=== PATIENT | male | born 1980 | race Caucasian/White ===

== ENCOUNTER 2021-11-13 07:36 | Emergency (ER) | payer OTHER, SELFPAY ==
[2021-11-13] VITALS (7 sets, daily range): BP systolic 130–146; BP diastolic 78–106; PULSE 58–95; RESP 18–20; TEMP 35.9–36.9; O2SAT 94–95
--- NOTE | ~2021-11-13 | XR_ITS ---
EXAMINATION: XR chest 1V portable 11/13/2021 08:12 INDICATION: Covid positive. Dyspnea. PROCEDURE: AP portable chest COMPARISON: 08/04/2014 FINDINGS: The lungs are clear. The cardiomediastinal silhouette is within normal limits. There are no pleural effusions. There is no pneumothorax suspected. IMPRESSION: 1: NO ACUTE CARDIOPULMONARY DISEASE. Reviewed, dictated and finalized at location A. [facility]
--- NOTE | 2021-11-13 07:42 | ED.SOB ---
HPI - SOB/Dyspnea General Chief Complaint: Shortness of Breath/Dyspnea Stated Complaint: SOB, COVID + Time Seen by Provider: 11/13/21 07:42 Source: patient Mode of arrival: ambulatory Limitations: no limitations History of Present Illness HPI Narrative: The patient is a 41-year-old male with a history of hypertension, anxiety, presenting to the emergency department for evaluation of shortness of breath. Patient states that he tested positive for influenza A and Covid on November 06. Patient states his positive exposure is his daughter who has had similar symptoms. States that she was symptomatic on November 03. Patient reports fever, chills, cough, chest tightness over the past week with increasing shortness of breath that worsens with exertion. Denies any current chest pain. Patient reports he has extreme anxiety, states that he believes that his anxiety also plays a role in this. He denies palpitations. No hemoptysis. Patient denies pleuritic chest pain. He reports diarrhea, nausea, denies significant abdominal pain. Patient is vaccinated. Patient denies calf pain or leg swelling. Patient states he has been using an albuterol inhaler which was prescribed by his primary care physician without much improvement in his symptoms. Patient states he was diagnosed with influenza A, Covid positive at [facility]. Related Data Home Medications Medication Instructions Recorded Confirmed acetaminophen-codeine tablet 11/13/21 albuterol sulfate INHALATION 11/13/21 alprazolam 11/13/21 benzonatate mg PO 11/13/21 lisinopril-hydrochlorothiazide tablet 11/13/21 11/13/21 Allergies Allergy/AdvReac Type Severity Reaction Status Date / Time No Known Allergies Allergy Unknown Verified 12/04/15 11:33 Review of Systems Review of Systems: CONSTITUTIONAL: Reports fever and chills EYES: Denies visual changes, redness, or discharge. ENT: Reports mild rhinorrhea CARDIOVASCULAR: Denies chest pain, reports palpitations without edema RESPIRATORY: Reports cough and shortness of breath GASTROINTESTINAL: Denies abdominal pain, nausea, diarrhea GENITOURINARY: Denies dysuria or hematuria. SKIN: Denies rash or itching. MUSCULOSKELETAL: Denies back pain, joint pain, reports myalgias NEUROLOGIC: Reports headache without numbness, or weakness. [facility] Past Medical History Medical History (Updated 11/13/21 @ 11:42 by Anushka Avitia MD) Anxiety HTN (hypertension) Surgical History Surgical History (Updated 11/13/21 @ 07:56 by Anushka Avitia MD) Hx of appendectomy Family History Family History Mother Hypertension Family history of diabetes mellitus in first degree relative Social History Social History Smoking status: Never smoker Alcohol intake: current Exam Narrative: GENERAL: Awake, alert, conversant, anxious appearing HEAD: Normocephalic, atraumatic. EYES: PERRLA and EOMI. ENT: Nares clear, no rhinorrhea or epistaxis. Mucous membranes moist. NECK: Supple. CHEST: No respiratory distress, breathing even and non labored, no tachypnea, no crackles, no coarse breath sounds HEART: Regular rate, sinus rhythm ABDOMEN:Non distended, non tender EXTREMITIES: Normal range of motion. No edema. SKIN: Warm, dry, no rash. NEURO:No focal deficits. Alert and oriented x3 Course Vital Signs Vital signs: Vital Signs Temperature 35.9 C L 11/13/21 07:42 Pulse Rate 95 11/13/21 07:42 Respiratory Rate 20 11/13/21 07:42 Blood Pressure 146/106 H 11/13/21 07:42 Pulse Oximetry 94 11/13/21 07:42 Temperature 35.9 C L 11/13/21 07:42 Pulse Rate 78 11/13/21 11:38 Respiratory Rate 20 11/13/21 11:38 Blood Pressure 131/78 11/13/21 11:38 Pulse Oximetry 95 11/13/21 11:38 MDM - SOB/Dyspnea MDM Narrative Medical decision making narrative: The patient is a 41-year-old male
--- NOTE | 2021-11-13 07:51 | ECG_ITS ---
Measurements Intervals [place] Rate: 76 P: 45 [place]: 137 QRS: 21 QRSD: 104 T: 42 QT: 371 QTc: 419 Interpretive Statements SINUS RHYTHM POSSIBLE ANTERIOR MYOCARDIAL INFARCTION , OF INDETERMINATE AGE NO PREVIOUS ECG AVAILABLE FOR COMPARISON Electronically Signed On 11-13-2021 12:26:11 [employer] by Sarabjit Paige M.D.
[2021-11-13] MEDS: LORazepam INJ (*CRX) 2 MG/ML VIAL 0.5 MG IM (08:03)
[2021-11-13 08:12] LABS: Basophils Percent Auto 0.4 % (0.2-1.2); Eosinophils Percent Auto 0.6 % (0-4.4); Hematocrit 42.9 % (42.0-52.0); Hemoglobin 15.2 g/dL (14.0-18.0); Immature Granulocyte Absolute 0.01 K/mm3 (0.00-0.031); Immature Granulocyte Percent A 0.2 % (0-0.5); Lymphocytes Absolute Auto 1.34 K/mm3 (0.9-3.2); Mean Corpuscular HGB Conc 35.4 g/dl (32-36); Mean Corpuscular Hemoglobin 29.3 pg (26-34); Mean Corpuscular Volume 82.7 fl (80-100); Mean Platelet Volume 10.9 fl (7.4-10.4); Monocytes Absolute Auto 0.4 K/mm3 (0.1-0.6); Monocytes Percent Auto 8.7 % (2.6-8.5); Neutrophils Absolute Auto 3.1 K/mm3 (1.3-6.7); Neutrophils Percent Auto 63.1 % (45.5-73.1); Platelet Count Result 182 k/mm3 (150-375); Red Blood Count 5.19 M/mm3 (4.6-6.20); Red Cell Distribution Width 12.7 % (11.5-14.5)
[2021-11-13 08:21] LABS: Lactate Dehydrogenase 628 U/L (313-618)
[2021-11-13 08:22] LABS: Alanine Aminotransferase 53 U/L (4-50); Albumin Level 4.5 g/dL (3.5-5.1); Alkaline Phosphatase 46 U/L (38-126); Anion Gap 9 mmol/L (8-16); Aspartate Amino Transferase 40 U/L (17-59); Bilirubin,Total 0.7 mg/dL (0.2-1.3); Blood Urea Nitrogen 14 mg/dL (9-20); Calcium 8.2 mg/dL (8.4-10.2); Carbon Dioxide 26 mmol/L (22-30); Chloride 101 mmol/L (98-107); Estimated CRCL calculation 104 ml/min; Estimated Glomerular Filt Rate > 60; Glucose 126 mg/dL (65-110); Potassium 3.8 mmol/L (3.4-5.0); Sodium 136 mmol/L (137-145)
[2021-11-13 08:23] LABS: D Dimer 0.31 ug/mL (<0.48)
[2021-11-13 08:52] LABS: NT Pro B Type Natriuretic Pept 35 pg/mL (5-100); Troponin I < 0.012 ng/mL (0.000-0.034)
[2021-11-13 10:01] LABS: Troponin I < 0.012 ng/mL (0.000-0.034)
--- NOTE | 2021-11-13 10:41 | PC.NURSE ---
Patient's VS monitored with activity. Patients resting SpO2 of 95 decreased to 91 and resting HR of 80 increased to 102.
[2021-11-13 11:36] LABS: Troponin I < 0.012 ng/mL (0.000-0.034)
[2021-11-13 11:44] LABS: SARS-CoV-2 RNA PCR Positive
== END 2021-11-13 12:01 | disposition home or self-care (01) ==
PROVIDERS: Emergency Provider Emergency Medicine; PCP Internal Medicine
DX: U07.1 COVID-19 (principal); R06.02 Shortness of breath; F41.9 Anxiety disorder, unspecified; I10 Essential (primary) hypertension
CPT/HCPCS: 36415; 71045; 80053; 82728; 83615; 83880; 84484; 85025; 85380; 93005; 96372; 99284; C9803; J2060; U0003; U0005

== ENCOUNTER 2021-11-13 10:35 | Outpatient (RCR) | payer OTHER, SELFPAY ==
[2021-11-13] MEDS: FAMOTIDINE 20 MG TABLET PO (13:32)
[2021-11-13] MEDS: diphenhydrAMINE HCl CAP 25 MG CAPSULE PO (13:32)
[2021-11-13] MEDS: ACETAMINOPHEN 325 MG TABLET 650 MG PO (13:32)
[2021-11-13 13:33] VITALS: BP 129/87; PULSE 89; TEMP 37.6; O2SAT 97
[2021-11-13 15:05] VITALS: BP 134/80; PULSE 73; O2SAT 97
== END 2021-11-13 16:00 ==
LOC: AMCINF 10:35
PROVIDERS: PCP Internal Medicine; Visit Provider Internal Medicine Hematology & Oncology
DX: U07.1 COVID-19 (principal); I10 Essential (primary) hypertension
CPT/HCPCS: A9270; M0247; Q0247